=== PATIENT | female | born 1965 | race Caucasian/White ===

== ENCOUNTER 2021-12-06 13:14 | Emergency (ER) | payer OTHER ==
[2021-12-06 13:26] VITALS: RESP 18; BMI 29.0
[2021-12-06] MEDS ORDERED: BEBTELOVIMAB (EUA) 175 MG/2 ML VIAL IVPUSH ONE (13:45)
[2021-12-06 16:06] VITALS: BP 121/58; PULSE 69; TEMP 98.9
== END 2021-12-06 16:05 | disposition home or self-care (01) ==
LOC: JCOVINFU 13:14
DX: U07.1 COVID-19 (principal)
CPT/HCPCS: 71046-TC-FY; 99284-25; M0222; Q0222

== ENCOUNTER 2022-12-17 08:13 | Day surgery (SDC) | payer OTHER ==
[2022-12-10 14:15] VITALS: BMI 29.0
[2022-12-17] MEDS ORDERED: BUPIVACAINE HCL/EPINEPHRINE/PF 30 ML VIAL IJ ONE (09:46)
[2022-12-17] MEDS ORDERED: EPINEPHrine 1:1,000 1,000 MCG/ML ML ONE (09:46)
[2022-12-17] MEDS ORDERED: DEXAMETHASONE SOD PHOSPHATE/PF 10 MG/ML SDV ONE (10:13)
[2022-12-17] MEDS ORDERED: BUPIVACAINE HCL/PF 0.5% (5 MG/ML) 30 ML VIAL IJ ONE (10:13)
[2022-12-17] MEDS ORDERED: MIDAZOLAM HCL 2 MG/2 ML SINGLE DOSE VIAL ONE (10:13)
[2022-12-17] MEDS ORDERED: ACETAMINOPHEN INJECTION 100 ML IVPB ONE (10:14)
[2022-12-17] MEDS ORDERED: PROPOFOL 20 ML ONE ×2 (10:40→11:11)
[2022-12-17] MEDS ORDERED: LIDOCAINE HCL/PF 2% SDV 5ML VIAL ONE (10:54)
[2022-12-17] MEDS ORDERED: DEXAMETHASONE SOD PHOSPHATE 4 MG/1 ML VIAL ONE (10:54)
[2022-12-17] MEDS ORDERED: KETOROLAC TROMETHAMINE 30 MG/1 ML VIAL ONE (10:54)
[2022-12-17] MEDS ORDERED: ONDANSETRON 4 MG/2 ML VIAL ONE (10:54)
[2022-12-17] MEDS ORDERED: ceFAZolin SODIUM 1 GM VIAL ONE ×2 (10:54)
[2022-12-17] MEDS ORDERED: oxyCODONE HCL 5 MG TABLET PO PRN ×2 (12:02)
[2022-12-17] MEDS ORDERED: ACETAMINOPHEN 325 MG TABLET (FP) PO PRN (12:02)
[2022-12-17] MEDS ORDERED: ONDANSETRON 4 MG/2 ML VIAL IVPUSH PRN (12:02)
[2022-12-17] MEDS ORDERED: FENTANYL CITRATE/PF 50 MCG/ML VIAL ONE ×2 (12:08→12:19)
[2022-12-17] MEDS ORDERED: LACTATED RINGERS SOLUTION 1,000 ML IV SCH (12:15)
[2022-12-17 13:27] VITALS: TEMP 97.3
[2022-12-17 14:00] VITALS: BP 110/66; PULSE 63; RESP 19
== END 2022-12-17 14:02 | disposition home or self-care (01) ==
LOC: FASU 08:13
PROVIDERS: ATTEND Orthopaedic Surgery
PROC: 0RNK4ZZ Release Left Shoulder Joint, Percutaneous Endoscopic Approach (ICD-10-PCS; principal; 2022-12-17 11:04)
DX: M75.112 Incomplete rotator cuff tear or rupture of left shoulder, not specified as traumatic (principal); M65.812 Other synovitis and tenosynovitis, left shoulder; M77.8 Other enthesopathies, not elsewhere classified; M75.52 Bursitis of left shoulder
CPT/HCPCS: 94760; C1713; C1763; C1883

== ENCOUNTER 2024-05-04 06:03 | Day surgery (SDC) | payer BC ==
[2024-04-28 16:11] VITALS: BMI 30.4
[2024-05-04] MEDS ORDERED: PROPOFOL 40 ML ONE (07:04)
[2024-05-04] MEDS ORDERED: MIDAZOLAM HCL 2 MG/2 ML SINGLE DOSE VIAL ONE ×2 (07:05→10:43)
[2024-05-04] MEDS ORDERED: ceFAZolin SODIUM 1 GM VIAL ONE (07:07)
[2024-05-04] MEDS ORDERED: ONDANSETRON 4 MG/2 ML VIAL ONE ×2 (07:07→09:52)
[2024-05-04] MEDS ORDERED: KETOROLAC TROMETHAMINE 30 MG/1 ML VIAL ONE (07:07)
[2024-05-04] MEDS ORDERED: DEXAMETHASONE SOD PHOSPHATE 4 MG/1 ML VIAL ONE (07:07)
[2024-05-04] MEDS ORDERED: BUPIVACAINE HCL/EPINEPHRINE/PF 30 ML VIAL IJ ONE (07:10)
[2024-05-04] MEDS ORDERED: DEXAMETHASONE SOD PHOSPHATE 10 MG/1 ML VIAL ONE (07:21)
[2024-05-04] MEDS ORDERED: BUPIVACAINE HCL/PF 0.5% (5 MG/ML) 30 ML VIAL IJ ONE (07:21)
[2024-05-04] MEDS ORDERED: ACETAMINOPHEN INJECTION 100 ML ONE (07:22)
[2024-05-04] MEDS: BUPIVACAINE 0.25% /EPI 1:200,000 10 ML VIAL NR ONE (08:08)
[2024-05-04] MEDS ORDERED: oxyCODONE HCL 5 MG TABLET PO PRN (09:16)
[2024-05-04] MEDS ORDERED: FENTANYL CITRATE/PF 50 MCG/ML VIAL ONE ×2 (09:24→09:39)
[2024-05-04] MEDS ORDERED: LACTATED RINGERS SOLUTION 1,000 ML IV SCH (09:30)
[2024-05-04] MEDS: ONDANSETRON 4 MG/2 ML VIAL IVPUSH PRN (09:55)
[2024-05-04] MEDS ORDERED: HYDROmorphone HCL/PF 1 MG/ML VIAL ONE (09:56)
[2024-05-04] MEDS: HYDROmorphone HCl 2 MG/ML VIAL IVPUSH PRN (10:05)
[2024-05-04] MEDS ORDERED: BUPIVACAINE HCL/PF 0.5% (5MG/ML) 10 ML VIAL ONE (10:43)
[2024-05-04] MEDS: oxyCODONE HCL 5 MG TABLET PO ONE (12:10)
[2024-05-04] MEDS ORDERED: oxyCODONE HCL 5 MG TABLET ONE (12:11)
[2024-05-04 12:29] VITALS: RESP 18; TEMP 97
[2024-05-04 13:06] VITALS: BP 97/64; PULSE 74
== END 2024-05-04 13:05 | disposition home or self-care (01) ==
LOC: FASU 06:03
PROVIDERS: ATTEND Orthopaedic Surgery
PROC: 0RNJ4ZZ Release Right Shoulder Joint, Percutaneous Endoscopic Approach (ICD-10-PCS; 2024-05-04)
PROC: 0LN14ZZ Release Right Shoulder Tendon, Percutaneous Endoscopic Approach (ICD-10-PCS; principal; 2024-05-04 08:08)
PROC: 0LQ14ZZ Repair Right Shoulder Tendon, Percutaneous Endoscopic Approach (ICD-10-PCS; 2024-05-04 08:08)
DX: M75.101 Unspecified rotator cuff tear or rupture of right shoulder, not specified as traumatic (principal); S46.111D Strain of muscle, fascia and tendon of long head of biceps, right arm, subsequent encounter; X58.XXXD Exposure to other specified factors, subsequent encounter
CPT/HCPCS: 94760; C1713; J0131; J1100